=== PATIENT | female | born 1970 ===

== ENCOUNTER 2017-10-14 11:00 | Emergency (ER) | payer OTHER ==
[2017-10-14 11:16] VITALS: TEMP 98.6; O2SAT 98
[2017-10-14 11:17] VITALS: BMI 18.8
[2017-10-14] MEDS ORDERED: Alum-Mag Hydrox-Simethicone Susp (30 mL) PO STA (11:59)
[2017-10-14] MEDS ORDERED: Sodium Chloride 0.9% 1,000 ML IV STA (11:59)
[2017-10-14] MEDS ORDERED: DiphenhydrAMINE 50 mg/ml Inj IVP STA (11:59)
[2017-10-14] MEDS ORDERED: Pantoprazole 40 MG in Sodium Chloride 0.9% 100 ML IVPB SCH (12:00)
--- NOTE | 2017-10-14 12:02 | ED PDOC ---
HPI: Abdomen Time Seen by Provider: 10/14/17 11:41 Chief Complaint (Nursing): Abdominal Pain Chief Complaint (Provider): EpiGastric Pain History Per: Patient, Spent [employer]er History/Exam Limitations: language barrier Onset/Duration Of Symptoms: Days (four), Intermittent Episodes, Persistent Outside of [place] travel?: No Current Symptoms Are (Timing): Still Present Context: Food Location Of Pain/Discomfort: Epigastric Quality Of Discomfort: Dull, Aching Associated Symptoms: Nausea Alleviating Factors: None Last Bowel Movement: Yesterday Additional Complaint(s): Pt presents to the ED with four days of abdominal pain and nausea that appears epigastric as well as a sore throat, gastric/acid reflux and a loss of appetite coupled with occasional loose stools. Pt denies melana, hematochezia, hematemesis, fever, vomiting or other pains. Pt has no GI history and no history of gastric ulcer or reflux Past Medical History Reviewed: Historical Data, Nursing Documentation, Vital Signs Vital Signs: Last Vital Signs Temp 98.6 F 10/14/17 11:15 Pulse 104 H 10/14/17 11:15 Resp 16 10/14/17 11:15 BP 117/80 10/14/17 11:15 Pulse Ox 98 10/14/17 12:34 - Family History Family History: States: Unknown Family Hx - Immunization History Hx Tetanus Toxoid Vaccination: No Hx Influenza Vaccination: No Hx Pneumococcal Vaccination: No - Home Medications Home Medications: Ambulatory Orders Medication Instructions Recorded Metronidazole [Flagyl] 500 mg PO Q8 #30 tab 05/22/17 Ondansetron ODT [Zofran ODT] 4 mg PO Q8 #12 odt 05/22/17 levoFLOXacin [Levaquin] 1 tab PO DAILY #10 tab 05/22/17 Famotidine [Pepcid] 40 mg PO DAILY #30 tablet 10/14/17 Omeprazole/Clarith/Amoxicillin 1 each PO DAILY #30 combo..pkg 10/14/17 [Omeclamox-Don Combo Pack] - Allergies Allergies/Adverse Reactions: Allergies Allergy/AdvReac Type Severity Reaction Status Date / Time No Known Allergies Allergy Verified 02/25/17 12:38 Review of Systems ROS Statement: Except As Marked, All Systems Reviewed And Found Negative Constitutional: Negative for: Fever Cardiovascular: Negative for: Chest Pain Respiratory: Negative for: Cough, Shortness of Breath Gastrointestinal: Positive for: Nausea, Abdominal Pain, Diarrhea. Negative for : Constipation, Melena, Hematochezia, Hematemesis Physical Exam - Reviewed Nursing Documentation Reviewed: Yes Vital Signs Reviewed: Yes - Physical Exam Appears: Positive for: Well, Non-toxic Head Exam: Positive for: ATRAUMATIC, NORMAL INSPECTION, NORMOCEPHALIC Skin: Positive for: Normal Color, Warm, Dry ENT: Positive for: Pharynx Is (erythematous without exudate or swelling), Pharyngeal Erythema. Negative for: Nasal Congestion, Tonsillar Exudate, Tonsillar Swelling Cardiovascular/Chest: Positive for: Regular Rate, Rhythm. Negative for: Edema, Murmur, Bradycardia, Tachycardia, Irregularly Irregular Respiratory: Positive for: Normal Breath Sounds. Negative for: Accessory Muscle Use, Crackles, Rhonchi, Stridor, Wheezing, Respiratory Distress Pulses-Carotid (L): 2+ Pulses-Carotid (R): 2+ Gastrointestinal/Abdominal: Positive for: Bowel Sounds (normal in all four quadrants), Soft, Tenderness (epigastric tenderness). Negative for: Guarding ( kody sign (-);parikh sign (-); rovsing sin (-) and there is no tenderness at mcburney point), Rebound, Asicites - Laboratory Results Result Diagrams: 10/14/17 12:53 10/14/17 12:53 - ECG O2 Sat by Pulse Oximetry: 98 Medical Decision Making Medical Decision Making: CBC (-) CMP (-) GI Cocktail Protinix CT ABD/Pelvis -- thickening of bowel (most probably remnant of earlier colitis) and early diverticulosis Disposition - Clinical Impression Clinical Impression: Diverticulosis, Gastric acidity, Epigastric abdominal pain - Patient ED Disposition Is Patient to be Admitted: No Doctor Will See Patient In The: Office Counseled Patient/Family Regarding: Studies Performed, Diagnosis, Need For Followup, Rx Given - Disposition Referrals: Jesse Alba MD [Medical Doctor] - Disposition: Routine/Home Disposition Time: 17:25 Condition: STABLE Additional Instructions: follow up with GI specialist in three months after the course of medication Prescriptions: Famotidine [Pepcid] 40 mg PO DAILY #30 tablet Omeprazole/Clarith/Amoxicillin [Omeclamox-Don Combo Pack] 1 each PO DAILY #30 combo..pkg Instructions: High Fiber Diet, Diverticulosis (DC), Gastric Ulcer (DC) Forms: [facility] (Georgian) Print Language: TAJIK
[2017-10-14] MEDS ORDERED: Alum-Mag Hydrox-Simethicone Susp (30 mL) ONE (12:24)
[2017-10-14] MEDS ORDERED: DiphenhydrAMINE 50 mg/ml Inj ONE (12:24)
[2017-10-14 12:42] LABS: SQUAMOUS EPITHIAL < 1 /hpf (0-5); URINE BACTERIA RARE (<OCC); URINE BILIRUBIN NEGATIVE (NEGATIVE); URINE BLOOD NEGATIVE (NEGATIVE); URINE CLARITY CLEAR (Clear); URINE COLOR YELLOW (YELLOW); URINE GLUCOSE (UA) NEG (Normal); URINE LEUKOCYTE ESTERASE NEG Leu/uL (Negative); URINE PROTEIN NEGATIVE (NEGATIVE); URINE UROBILINOGEN 0.2-1.0 mg/dL (0.2-1.0)
[2017-10-14 12:59] LABS: BASO % 0.5 % (0.0-2.0); EOS % 0.1 % (0.0-4.0); HEMOGLOBIN 14.2 g/dL (12.0-16.0); LYMPH # 1.6 K/uL (1.0-4.3); LYMPH % 18.9 % (20.0-40.0); MEAN CELL VOLUME 96.2 fl (81.0-99.0); MEAN CORPUSCULAR HEMOGLOBIN 32.7 pg (27.0-31.0); MEAN CORPUSCULAR HGB CONC 33.9 g/dL (33.0-37.0); MEAN PLATELET VOLUME 8.7 fl (7.2-11.7); MONO # 0.4 K/uL (0.0-0.8); MONO % 4.8 % (0.0-10.0); NEUT # 6.3 K/uL (1.8-7.0); NEUT % 75.7 % (50.0-75.0); RBC 4.33 Mil/uL (3.80-5.20); RED CELL DISTRIBUTION WIDTH 14.3 % (11.5-14.5); WHITE BLOOD COUNT 8.3 K/uL (4.8-10.8)
[2017-10-14 13:13] LABS: ALBUMIN 4.5 g/dL (3.5-5.0); ALT/SGPT 61 U/L (9-52); AST/SGOT 58 U/L (14-36); BLOOD UREA NITROGEN 9 mg/dl (7-17); CALCIUM 9.6 mg/dL (8.4-10.2); GFR AFRICAN-AMERICAN > 60; GFR NON-AFRICAN AMERICAN > 60; LIPASE 64 U/L (23-300)
[2017-10-14] MEDS ORDERED: Sodium Chloride 0.9% 50 ML IV ONE (14:38)
[2017-10-14] MEDS ORDERED: Iohexol 300 100 ML IJ ONE (14:38)
--- NOTE | 2017-10-14 16:33 | CT ---
PROCEDURE: CT Abdomen and Pelvis with contrast HISTORY: r/o colitis COMPARISON: None. TECHNIQUE: CT scan of the abdomen and pelvis was performed after administration of intravenous contrast. Oral contrast was not administered. Coronal and sagittal reformatted images were obtained. Contrast dose: 98 cc Omnipaque Radiation dose: Total exam DLP = 444.69 mGy-cm. This CT exam was performed using one or more of the following dose reduction techniques: Automated exposure control, adjustment of the mA and/or kV according to patient size, and/or use of iterative reconstruction technique. FINDINGS: LOWER THORAX: There is dependent atelectasis in the lungs. LIVER: The liver is normal in size and there is diffuse fatty infiltration. No gross lesion or ductal dilatation. GALLBLADDER AND BILE DUCTS: No calcified gallstones. PANCREAS: The pancreas is normal in size with homogeneous enhancement. No ductal dilatation or mass. There is a 4 mm simple cyst in the tail of the pancreas. SPLEEN: Normal in size and appearance. ADRENALS: No discrete nodule. KIDNEYS AND URETERS: Both kidneys are normal in size with homogeneous enhancement. No hydronephrosis. No solid mass. VASCULATURE: No aortic aneurysm. BOWEL: The small bowel loops are normal in caliber. There is mild sigmoid diverticulosis. There is apparent mild mural thickening in the sigmoid colon. No perforation or abscess. APPENDIX: Normal appendix. PERITONEUM: No free fluid. No free air. LYMPH NODES: No enlarged lymph nodes. BLADDER: Decompressed. REPRODUCTIVE: Surgically absent uterus. BONES: Mild levoscoliosis in the lumbar spine No acute fracture. Within normal limits for the patient's age OTHER FINDINGS: None. IMPRESSION: Mild segmental mural thickening in the sigmoid colon is nonspecific and could be related to underdistention however early diverticulitis cannot be excluded. No perforation or abscess. Clinical follow-up is advised. 4 mm simple cyst in the tail of the pancreas. Fatty liver.
[2017-10-14 17:39] VITALS: BP 112/76; PULSE 92; RESP 18
--- NOTE | 2017-10-15 14:59 | CARD ---
APPROVED REPORT EKG Measurement Heart [id number] <Conclusion> Normal sinus rhythm with sinus arrhythmia Possible Left atrial enlargement ST & T wave abnormality, consider anterolateral ischemia Abnormal ECG
== END 2017-10-14 17:35 | disposition home or self-care (01) ==
LOC: H.ER 11:00
DX: R10.13 Epigastric pain (principal); K57.90 Diverticulosis of intestine, part unspecified, without perforation or abscess without bleeding; K30 Functional dyspepsia
CPT/HCPCS: 74177; 80053; 81003; 81025; 83690; 84484; 85025; 87086; 87491; 87591; 93005; 96374; 99283; C9113; J1200; J7040; Q9967

== ENCOUNTER 2018-06-19 14:23 | Emergency (ER) | payer OTHER ==
[2018-06-19 14:23] VITALS: BMI 18.8
[2018-06-19 14:33] VITALS: RESP 16
[2018-06-19] MEDS ORDERED: Sodium Chloride 0.9% 1,000 ML IV STA (16:17)
[2018-06-19] MEDS ORDERED: Alum-Mag Hydrox-Simethicone Susp (30 mL) PO ONE (16:17)
--- NOTE | 2018-06-19 16:27 | ED PDOC ---
HPI: Abdomen Time Seen by Provider: 06/19/18 16:01 Chief Complaint (Nursing): Abdominal Pain Chief Complaint (Provider): Epigastric pain Additional History Per: Patient Additional Complaint(s): This is 48 y/o F with PMH of gastritis comes to the ER c/o one week history of worsening epigastric pain. Patient reports pain is 10/10, dull, comes and goes, radiates to the RUQ, gets worse with food, associated with bitter taste in mouth, nausea and 2-3 episodes of loose diarrhea. Patient reports she has chronic gastritis and multiple visits for gastritis. Patient reports dysuria and nocturia. Denies any chest pain, SOB, or weakness. PMH: Gastritis PSH: Hysterectomy Allg: NKDA Meds: Denies SH: Denies any alcohol, smoking or drug use FH: No GI cancers ROS: As per HPI Past Medical History Vital Signs: Last Vital Signs Temp 98.0 F 06/19/18 14:31 Pulse 88 06/19/18 14:31 Resp 16 06/19/18 14:31 BP 150/76 06/19/18 14:31 Pulse Ox 100 06/19/18 14:31 - Medical History PMH: HTN, Hypercholesterolemia - Surgical History Other surgeries: Hystrectomy - Family History Family History: States: Unknown Family Hx - Social History Ex-Smoker (has not smoked in the last 12 months): No - Immunization History Hx Tetanus Toxoid Vaccination: No Hx Influenza Vaccination: No Hx Pneumococcal Vaccination: No - Home Medications Home Medications: Ambulatory Orders Medication Instructions Recorded Famotidine [Pepcid] 20 mg PO DAILY #30 tab 06/19/18 - Allergies Allergies/Adverse Reactions: Allergies Allergy/AdvReac Type Severity Reaction Status Date / Time No Known Allergies Allergy Verified 06/19/18 14:31 Review of Systems Constitutional: Negative for: Fever, Chills, Weakness Eyes: Negative for: Pain, Vision Change ENT: Negative for: Ear Pain, Ear Discharge, Nose Discharge, Mouth Pain Cardiovascular: Negative for: Chest Pain, Palpitations, Orthopnea, Paroxysmal Noc. Dyspnea Respiratory: Negative for: Cough, Shortness of Breath, Hemoptysis Gastrointestinal: Positive for: Nausea, Abdominal Pain, Diarrhea. Negative for: Vomiting Genitourinary Female: Positive for: Dysuria, Frequency. Negative for: Incontinence Musculoskeletal: Negative for: Neck Pain Skin: Negative for: Rash Neurological: Negative for: Weakness Psych: Negative for: Anxiety Physical Exam - Physical Exam Appears: Positive for: No Acute Distress Head Exam: Positive for: NORMAL INSPECTION Skin: Positive for: Normal Color Eye Exam: Positive for: Normal appearance ENT: Positive for: Normal ENT Inspection Neck: Positive for: Normal Cardiovascular/Chest: Positive for: Regular Rate, Rhythm. Negative for: Edema, JVD Respiratory: Positive for: Normal Breath Sounds. Negative for: Decreased Breath Sounds, Accessory Muscle Use, Crackles Gastrointestinal/Abdominal: Positive for: Normal Exam, Bowel Sounds, Soft. Negative for: Tenderness, Distended Back: Positive for: Normal Inspection. Negative for: L CVA Tenderness Extremity: Positive for: Normal ROM. Negative for: Tenderness, Pedal Edema Neurologic/Psych: Positive for: Alert, Oriented. Negative for: Motor/Sensory Deficits - Laboratory Results Result Diagrams: 06/19/18 16:34 06/19/18 16:34 - ECG O2 Sat by Pulse Oximetry: 100 - Progress ED Course And Treament: A/P; 48 y/o F with epigastric pain, radiating to LUQ - CBC - CMP - Lipase - UA - U/S of LUQ - Zofran - Pepcid - IVF - Maalox Case discussed with Dr. Daigle Labs and U/s reviewed Dx: hepatic steatosis and gastritis Case discussed with Dr. Daigle Re-evaluation Time: 18:16 Condition: Improving,but remains with symptoms Medical Decision Making Medical Decision Making: Gastritis, GERD Disposition - Clinical Impression Clinical Impression: Gastritis, Hepatic steatosis, Epigastric abdominal pain - Patient ED Disposition Is Patient to be Admitted: No - Disposition Referrals: [facility] [Provider Group] Disposition: Routine/Home Disposition Time: 18:11 Condition: STABLE Additional Instructions: Follow up with PMD in 2-3 days Diet modification: No spicy or fried food ER precautions discussed with patient: Return to ED if symptoms get worse or do not resolve Prescriptions: Famotidine [Pepcid] 20 mg PO DAILY #30 tab Instructions: Gastritis (DC), Acid Reflux (Gastroesophageal Reflux Disease) in Adults Forms: [employer] (Slovenian) Print Language: AZERI
[2018-06-19] MEDS ORDERED: Alum-Mag Hydrox-Simethicone Susp (30 mL) ONE (16:34)
[2018-06-19 16:38] LABS: BASO # 0.1 K/uL (0.0-0.2); BASO % 1.1 % (0.0-2.0); EOS % 0.7 % (0.0-4.0); HEMOGLOBIN 13.4 g/dL (12.0-16.0); LYMPH # 2.9 K/uL (1.0-4.3); LYMPH % 40.3 % (20.0-40.0); MEAN CELL VOLUME 99.1 fl (81.0-99.0); MEAN CORPUSCULAR HGB CONC 33.3 g/dL (33.0-37.0); MEAN PLATELET VOLUME 8.5 fl (7.2-11.7); MONO # 0.4 K/uL (0.0-0.8); NEUT # 3.7 K/uL (1.8-7.0); NEUT % 51.9 % (50.0-75.0); RBC 4.05 Mil/uL (3.80-5.20); RED CELL DISTRIBUTION WIDTH 13.7 % (11.5-14.5); WHITE BLOOD COUNT 7.2 K/uL (4.8-10.8)
[2018-06-19 16:41] LABS: URINE BILIRUBIN NEGATIVE (NEGATIVE); URINE BLOOD NEGATIVE (NEGATIVE); URINE CLARITY CLEAR (Clear); URINE COLOR YELLOW (YELLOW); URINE GLUCOSE (UA) NEG (NEGATIVE); URINE LEUKOCYTE ESTERASE NEG Leu/uL (Negative); URINE PROTEIN NEGATIVE (NEGATIVE); URINE UROBILINOGEN 0.2-1.0 mg/dL (0.2-1.0)
[2018-06-19 16:51] LABS: ALB/GLOB RATIO 1.2 (1.0-2.1); ALBUMIN 4.6 g/dL (3.5-5.0); ALT/SGPT 34 U/L (9-52); AST/SGOT 47 U/L (14-36); BLOOD UREA NITROGEN 7 mg/dl (7-17); CALCIUM 9.8 mg/dL (8.4-10.2); GFR NON-AFRICAN AMERICAN > 60; LIPASE 67 U/L (23-300)
--- NOTE | 2018-06-19 17:27 | US ---
Date of service: 06/19/2018 HISTORY: RUQ and aorta COMPARISON: None. TECHNIQUE: Sonographic evaluation of the right upper quadrant of the abdomen. FINDINGS: LIVER: Measures 13.5 cm in length. Hepatopedal blood flow. Fatty infiltration manifest ultrasonographically as increased echogenicity of the liver parenchyma. No mass. No intrahepatic bile duct dilatation. GALLBLADDER: Unremarkable. No gallstones. COMMON BILE DUCT: Measures 3.9 mm. No stones. No dilatation. PANCREAS: Unremarkable as visualized. No mass. No ductal dilatation. RIGHT KIDNEY: Measures cm in length. Normal echogenicity. No calculus, mass, or hydronephrosis. AORTA: No aneurysmal dilatation. Proximal aorta: 2.1 x 2.2 cm Mid aorta: 1.2 x 1.4 cm Distal aorta: 1.2 x 1.5 cm Right common iliac artery: 0.5 x 0.8 cm Left common iliac artery: 0.6 x 0.7 cm IVC: Unremarkable. OTHER FINDINGS: None . IMPRESSION: Hepatic steatosis, otherwise no acute or significant findings. 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
[2018-06-19 19:00] VITALS: BP 124/89; PULSE 82; TEMP 98.3; O2SAT 99
== END 2018-06-19 18:28 | disposition home or self-care (01) ==
LOC: H.ER 14:23
DX: R10.13 Epigastric pain (principal); K29.70 Gastritis, unspecified, without bleeding; K76.0 Fatty (change of) liver, not elsewhere classified; E78.00 Pure hypercholesterolemia, unspecified; I10 Essential (primary) hypertension
CPT/HCPCS: 76705; 80053; 81003; 83690; 85025; 96360; 99283; J7030